=== PATIENT | female | born 1965 | race African-American/Black ===

== ENCOUNTER 2016-12-28 06:35 | Emergency (ER) | payer MEDICAID ==
[~2016-12-28] VITALS: Ht 154.9 cm; Wt 73.0 kg
[2016-12-28] MEDS ORDERED: TETANUS, DIPHTHERIA, PERTUSSIS VAC/PF 0.5ML (>7YR OLD) IM ONE (09:30)
[2016-12-28 09:36] VITALS: BP 128/60
[2016-12-28] MEDS ORDERED: IBUPROFEN 600MG TABLET PO ONE (09:45)
[2016-12-28] MEDS ORDERED: BACITRACIN ZINC OINT UDPKT TOP ONE (09:45)
== END 2016-12-28 10:16 | disposition home or self-care (01) ==
LOC: ER 09:15
DX: S71.102A Unspecified open wound, left thigh, initial encounter (principal); E03.9 Hypothyroidism, unspecified; F17.200 Nicotine dependence, unspecified, uncomplicated; W26.8XXA Contact with other sharp object(s), not elsewhere classified, initial encounter; Y93.89 Activity, other specified; Y92.89 Other specified places as the place of occurrence of the external cause; Y99.8 Other external cause status
CPT/HCPCS: 90471; 90715; 99283

== ENCOUNTER 2021-04-02 07:16 | Emergency (ER) | payer MEDICAID ==
[~2021-04-02] VITALS: Ht 154.9 cm; Wt 73.0 kg
[2021-04-02] MEDS ORDERED: ASPIRIN 325MG EC TABLET PO ONE (08:15)
[2021-04-02] MEDS ORDERED: NITROGLYCERIN 0.4MG TABLET SL SL ONE (08:15)
[2021-04-02 08:36] LABS: BASOPHILS % 0.6 % (0.0-2.0); EOSINOPHILS % 0.9 % (0.0-5.0); HEMATOCRIT. 38.9 % (36.0-48.0); HEMOGLOBIN. 13.2 g/dL (12.0-16.0); LYMPHOCYTES % 13.2 % (20.0-50.0); MEAN CORPUSCULAR HEMOGLOBIN 28.5 pg (28.0-32.0); MEAN CORPUSCULAR VOLUME 83.8 fL (81.0-99.0); MEAN PLATELET VOLUME 9.5 fl (7.4-10.4); MONOCYTES % 4.9 % (2.0-8.0); NEUTROPHILS % 80.4 % (40.0-76.0); PLATELET 225 x1000/uL (130-400); RED BLOOD CELL COUNT 4.64 mill/uL (4.2-5.4); RED CELL DISTRIBUTION WIDTH 14.9 % (11.6-14.6)
[2021-04-02 08:51] LABS: CHLORIDE 107 mEq/L (98-107)
[2021-04-02 13:30] VITALS: BP 139/77
== END 2021-04-02 13:45 | disposition left against medical advice (07) ==
LOC: ER 07:16 → EDBEDREQ 09:30 → EDBEDREQTM 09:30 → CANRESERV 13:14 → ENRESERV 13:14 → ER 13:45 → CANBEDREQ 14:00
DX: R07.89 Other chest pain (principal); I10 Essential (primary) hypertension; Z91.14 Patient's other noncompliance with medication regimen; Z86.39 Personal history of other endocrine, nutritional and metabolic disease
CPT/HCPCS: 36415; 71045; 80053; 83880; 84484; 85025; 85379; 93005; 99285